=== PATIENT | male | born 1930 | race Caucasian/White ===

== ENCOUNTER 2016-03-13 23:54 | Inpatient (IN) | payer MEDICARE ==
[~2016-03-13] VITALS: Ht 170.2 cm; Wt 68.0 kg
[2016-03-13] MEDS ORDERED: ONDANSETRON 4 MG VIAL IV PUSH PRN (23:55)
[2016-03-13] MEDS ORDERED: ACETAMINOPHEN 325 MG TAB PO PRN (23:55)
[2016-03-14 02:12] VITALS: BMI 23.5
[2016-03-14 02:45] VITALS: BP_SYST 144; RESP 16; TEMP 98.4
[2016-03-14] MEDS: SODIUM BICARB 8.4% 100 ML in SODIUM CHLORIDE 0.45% 1,000 ML IV SCH ×2 (03:27→12:08)
[2016-03-14 07:22] VITALS: BP_SYST 142; RESP 20; TEMP 98.4
[2016-03-14] MEDS ORDERED: PNEUMO VAC 25 MCG/0.5 ML VL IM.VACC ONE (09:00)
[2016-03-14] MEDS ORDERED: Flu Vaccine Quadrivalent 60 MCG/0.5 ML IM.VACC ONE (09:00)
[2016-03-14] MEDS ORDERED: MISSING DOSE XX ONE (10:50)
[2016-03-14 11:32] VITALS: BP_SYST 116; RESP 20; TEMP 97.6
[2016-03-14] MEDS: amLODIPine 5 MG TAB PO SCH (12:41)
[2016-03-14 19:16] VITALS: BP_SYST 142; RESP 16; TEMP 97.8
[2016-03-15 00:14] VITALS: BP_SYST 165; RESP 16; TEMP 97.9
[2016-03-15] MEDS ORDERED: MISSING DOSE XX ONE ×2 (00:55→07:25)
[2016-03-15] MEDS: SODIUM BICARB 8.4% 100 ML in SODIUM CHLORIDE 0.45% 1,000 ML IV SCH ×2 (01:21→10:04)
[2016-03-15 04:33] VITALS: BP_SYST 153; RESP 20; TEMP 97.2
[2016-03-15 07:39] VITALS: BP_SYST 146; RESP 20; TEMP 97.3
[2016-03-15] MEDS: amLODIPine 5 MG TAB PO SCH (08:06)
[2016-03-15] MEDS ORDERED: DILAUDID 1 MG/ML AMP IV PRN (10:40)
[2016-03-15 11:28] VITALS: BP_SYST 141; RESP 18; TEMP 97.7
[2016-03-15 14:58] VITALS: BP_SYST 140; RESP 18; TEMP 98
[2016-03-15 19:14] VITALS: BP_SYST 119; RESP 20; TEMP 98.3
[2016-03-16 00:17] VITALS: BP_SYST 122; RESP 16; TEMP 98.3
[2016-03-16] MEDS: SODIUM BICARB 8.4% 100 ML in SODIUM CHLORIDE 0.45% 1,000 ML IV SCH ×2 (00:37→18:08)
[2016-03-16 03:22] VITALS: BP_SYST 146; RESP 20; TEMP 98.3
[2016-03-16 07:43] VITALS: BP_SYST 151; RESP 18; TEMP 98
[2016-03-16] MEDS: amLODIPine 5 MG TAB PO SCH (09:05)
[2016-03-16 11:47] VITALS: BP_SYST 147; RESP 18; TEMP 98.2
[2016-03-16 15:05] VITALS: BP_SYST 142; RESP 18; TEMP 97.8
[2016-03-16] MEDS ORDERED: MISSING DOSE XX ONE (17:05)
[2016-03-16 19:50] VITALS: BP_SYST 131; RESP 20; TEMP 98.3
[2016-03-17] VITALS (7 sets, daily range): BP systolic 132–162; RESP 18–20; TEMP 98–99.5
[2016-03-17] MEDS ORDERED: MISSING DOSE XX ONE (07:25)
[2016-03-17] MEDS ORDERED: STOP IV IV SCH (07:45)
[2016-03-17] MEDS: amLODIPine 5 MG TAB PO SCH (08:46)
[2016-03-18 03:57] VITALS: BP_SYST 139; RESP 18; TEMP 98.6
[2016-03-18 07:21] VITALS: BP_SYST 191; RESP 20; TEMP 98.3
[2016-03-18] MEDS: amLODIPine 5 MG TAB PO SCH (08:41)
[2016-03-18 11:16] VITALS: BP_SYST 129; RESP 20; TEMP 98.4
[2016-03-18 11:26] VITALS: BP_SYST 129; RESP 20; TEMP 98.4
[2016-03-18 11:29] VITALS: BP_SYST 129; RESP 20; TEMP 98.4
== END 2016-03-18 13:07 | DRG 683 ==
LOC: ENRESERVDT → ENRESERVTM → ENPENDDIS 03-14 01:58 → 4NT 03-14 01:58 → DELPENDDIS 03-14 01:58
PROVIDERS: ADMIT Internal Medicine Nephrology; ATTEND Internal Medicine Nephrology
CPT/HCPCS: 73218; 73221; 80048; 90732